=== PATIENT | female | born 1950 | race Caucasian/White ===

== ENCOUNTER → 2020-07-16 | Outpatient (CLI) | payer MEDICARE ==
[~2020-07-16] MED LIST: CELE100C PO; CETI-158 PO; DICL100G29 TD; LEFL20TA16 PO; LISI-170 PO; METF850T10 PO; OMEP20TA62 PO; OXYB10TA26 PO; ROPI0.5T4 PO; ZINC50CA PO
[2020-07-16 12:07] LABS: BASOPHILS % (AUTO) 1 % (0-1); EOSINOPHILS % (AUTO) 8 % (1-7); LYMPHOCYTES % (AUTO) 40 % (22-44); MEAN CORPUSCULAR HEMOGLOBIN 29.8 pg (27.0-34.8); MEAN CORPUSCULAR HGB CONC 34.1 g/dL (32.4-35.8); MEAN PLATELET VOLUME 7.1 fL (7.4-10.4); MONOCYTES % (AUTO) 12 % (2-9); NEUTROPHILS % (AUTO) 39 % (42-75); PLATELET COUNT 227 x10^3/uL (130-400); RED BLOOD COUNT 4.95 x10^6/uL (3.82-5.3); RED CELL DISTRIBUTION WIDTH 14.4 % (9.6-15.2)
[2020-07-16 12:09] LABS: MICROSCOPIC INDICATED
[2020-07-16 12:14] LABS: ALANINE AMINOTRANSFERASE 20 U/L (12-78); ALBUMIN 3.7 g/dL (3.4-5.0); ANION GAP 7 mmol/L (5-15); CALCIUM 9.6 mg/dL (8.5-10.1); CHLORIDE 104 mmol/L (98-107); CREATININE 1.46 mg/dL (0.55-1.02)
[2020-07-16 12:15] LABS: INTERNATIONAL NORMALIZED RATIO 0.98 (0.93-1.1); MD NO; PROTHROMBIN TIME 10.5 Seconds (9.6-11.5)
[2020-07-16 12:17] LABS: ALKALINE PHOSPHATASE 96 U/L (45-117); BILIRUBIN,TOTAL 0.5 mg/dL (0.2-1.0); TOTAL PROTEIN 8.4 g/dL (6.4-8.2)
== END | disposition home or self-care (01) ==
LOC: STAR 10:11
PROVIDERS: ATTEND Urology
DX: Z01.818 Encounter for other preprocedural examination (principal); N20.0 Calculus of kidney; I44.0 Atrioventricular block, first degree; I45.2 Bifascicular block; Z20.822 Contact with and (suspected) exposure to COVID-19
CPT/HCPCS: 36415; 80053; 81001; 85025; 85610; 87077; 87086; 93005; U0003; 87186

== ENCOUNTER 2020-07-20 14:03 | Day surgery (SDC) | payer MEDICARE ==
[~2020-07-20] VITALS: Ht 162.6 cm; Wt 73.3 kg
[2020-07-20] MEDS ORDERED: CHLORHEXIDINE 15 ML UDC ONE (14:30)
[2020-07-20] MEDS ORDERED: LACTATED RINGERS 1,000 ML IV SCH (15:00)
[2020-07-20] MEDS ORDERED: LIDOCAINE-MPF 1%, 2ML INFIL ONE (15:00)
[2020-07-20] MEDS ORDERED: CHLORHEXIDINE 15 ML UDC PO ONE (15:00)
[2020-07-20] MEDS ORDERED: TRESIBA (15:05)
[2020-07-20] MEDS ORDERED: humalog SQ (15:11)
[2020-07-20] MEDS ORDERED: antibiotic for uti PO (15:11)
[2020-07-20] MEDS ORDERED: FENTANYL PF 250 MCG/5ML ONE (16:04)
[2020-07-20] MEDS ORDERED: CEFAZOLIN 1,000 MG ONE ×2 (16:05→16:25)
[2020-07-20] MEDS ORDERED: ONDANSETRON 2MG/ML, 2ML ONE (16:05)
[2020-07-20] MEDS ORDERED: DEXAMETHASONE 4 MG/ML, 1ML ONE (16:05)
[2020-07-20] MEDS ORDERED: PROPOFOL 10 MG/ML, 20ML ONE ×2 (16:05)
[2020-07-20] MEDS ORDERED: OMNIPAQUE 350 MG/ML, 50 ML BOTTLE ONE (16:11)
[2020-07-20] MEDS ORDERED: LABETALOL 5MG/ML, 20ML IV PRN (16:30)
[2020-07-20] MEDS ORDERED: ACETAMINOPHEN 325 MG TABLET PO PRN (16:30)
[2020-07-20] MEDS ORDERED: FENTANYL PF 100 MCG/2ML IV PRN (16:30)
[2020-07-20] MEDS ORDERED: morphine SULFATE 10 MG/ML, 1ML IVPush PRN (16:30)
[2020-07-20] MEDS ORDERED: HYDROmorphone 1 MG/ML, 1ML INJ IVPush PRN (16:30)
[2020-07-20] MEDS ORDERED: ONDANSETRON 2MG/ML, 2ML IVPush PRN (16:30)
[2020-07-20] MEDS ORDERED: hydrALAzine 20 MG/ML, 1ML IV PRN (16:30)
[2020-07-20] MEDS ORDERED: OXYcodone 5 MG/5 ML ORAL.SOL UDC PO PRN (16:30)
[2020-07-20] MEDS ORDERED: PROMETHAZINE 25 MG/ML, 1ML IVPush PRN (16:30)
[2020-07-20] MEDS ORDERED: hydrALAzine 20 MG/ML, 1ML ONE (16:53)
[2020-07-20] MEDS ORDERED: OXYcodone 5 MG/5 ML ORAL.SOL UDC ONE (17:26)
[2020-07-20] MEDS ORDERED: FENTANYL PF 100 MCG/2ML ONE (17:26)
[2020-07-20] MEDS ORDERED: PROMETHAZINE 25 MG/ML, 1ML ONE (17:33)
== END 2020-07-20 19:30 | disposition home or self-care (01) ==
LOC: OR 14:03 → OUT 19:30
PROVIDERS: ATTEND Urology
DX: N20.0 Calculus of kidney (principal); I10 Essential (primary) hypertension; E11.9 Type 2 diabetes mellitus without complications; E78.00 Pure hypercholesterolemia, unspecified; Z88.8 Allergy status to other drugs, medicaments and biological substances; Z98.890 Other specified postprocedural states; Z79.899 Other long term (current) drug therapy; Z87.891 Personal history of nicotine dependence
CPT/HCPCS: 52332; 52352; 74420; 82360; 82962; 88300; C1758; C1769; C2617; J0360; J0690; J1100; J2405; J2550; J2704; J3010; J7120; Q9967